=== PATIENT | male | born 1965 | race Caucasian/White ===

== ENCOUNTER 2020-10-05 07:08 | Outpatient (REF) | payer MEDICAID, SELFPAY | END 2020-10-05 07:09 | disposition home or self-care (01) | LOC: HO.LAB 07:08 | PROVIDERS: Visit Provider Internal Medicine | DX: Z20.828 Contact with and (suspected) exposure to other viral communicable diseases (principal) | CPT/HCPCS: C9803; U0003 ==

== ENCOUNTER 2021-08-01 15:30 | Outpatient (REF) | payer MEDICAID, SELFPAY | END 2021-08-01 15:31 | disposition home or self-care (01) | LOC: HO.LAB 15:30 | PROVIDERS: PCP Family Medicine; Visit Provider Internal Medicine | DX: Z20.822 Contact with and (suspected) exposure to COVID-19 (principal) | CPT/HCPCS: C9803; U0003; U0005 ==

== ENCOUNTER 2021-10-08 07:48 | Outpatient (REF) | payer MEDICAID, SELFPAY | END 2021-10-08 07:49 | disposition home or self-care (01) | LOC: HO.LAB 07:48 | PROVIDERS: PCP Family Medicine; Visit Provider Internal Medicine | DX: Z20.822 Contact with and (suspected) exposure to COVID-19 (principal) | CPT/HCPCS: C9803; U0003; U0005 ==